=== PATIENT | male | born 1975 | race Caucasian/White ===

== ENCOUNTER 2024-07-26 05:23 | Emergency (ER) | payer BC ==
[~2024-07-26] VITALS: Ht 170.2 cm; Wt 120.7 kg
[2024-07-26 05:42] VITALS: BP_SYST 143; PULSE 67; RESP 18; TEMP 98.1; O2SAT 99
[2024-07-26] MEDS ORDERED: IBUP-1971 PO (07:37)
[2024-07-26] MEDS ORDERED: OMEP40CA20 PO (07:37)
[2024-07-26 07:42] LABS: BASOPHILS % (AUTO) 0.3 % (0.0-2.0); EOSINOPHILS % (AUTO) 0.2 % (0.0-4.0); HEMATOCRIT 42.7 % (36-54); HEMOGLOBIN 14.1 g/dL (14.0-18.0); LYMPHOCYTES # (AUTO) 1.6 K/uL (1.0-5.5); LYMPHOCYTES % (AUTO) 16.6 % (20.5-51.5); MEAN CORPUSCULAR HEMOGLOBIN 27 pg (27-31); MEAN CORPUSCULAR HGB CONC 33 % (32-36); MEAN CORPUSCULAR VOLUME 82 fL (79.0-98.0); MONOCYTES # (AUTO) 0.5 K/uL (0.0-1.0); MONOCYTES % (AUTO) 5.1 % (1.7-9.3); NEUTROPHILS # (AUTO) 7.4 K/uL (1.8-7.7); NEUTROPHILS % (AUTO) 77.8 % (40.0-70.0); PLATELET COUNT (AUTO) 276 K/uL (130-430); RED BLOOD CELL COUNT(AUTO) 5.24 MIL/uL (4.2-6.2); RED CELL DISTRIBUTION WIDTH 13.5 % (9.0-15.0); WHITE BLOOD COUNT (AUTO) 9.5 K/uL (4.8-10.8)
[2024-07-26] MEDS: ONDANSETRON 4 MG ODT TAB PO ONE (07:53)
[2024-07-26] MEDS: NACL 0.9% 1,000 ML IV ONE (07:53)
[2024-07-26] MEDS: ONDANSETRON HCL 4 MG/2 ML VIAL IVP ONE (07:53)
[2024-07-26 07:54] LABS: ALBUMIN 4.1 g/dL (3.4-4.8); BILIRUBIN,DIRECT 0.1 mg/dL (0.0-0.3); CALCIUM 8.8 mg/dL (8.4-11.0); CREATININE 0.86 mg/dL (0.55-1.30); POTASSIUM 4.1 mmol/L (3.5-5.1); TOTAL BILIRUBIN 0.4 mg/dL (0.0-1.0); TOTAL PROTEIN, SERUM 8.2 g/dL (6.4-8.3)
[2024-07-26] MEDS: MORPHINE 4 MG INJ. 4 MG/ML VIAL IVP ONE (07:54)
[2024-07-26] MEDS: KETOROLAC TROMETHAMINE 60 MG/2 ML VIAL IM ONE (07:54)
[2024-07-26 08:38] VITALS: BP_SYST 143; PULSE 67; RESP 18; TEMP 98.1; O2SAT 99
== END 2024-07-26 08:34 | disposition home or self-care (01) ==
LOC: SED 05:23
DX: R10.13 Epigastric pain (principal); R11.2 Nausea with vomiting, unspecified; K76.0 Fatty (change of) liver, not elsewhere classified; Z79.899 Other long term (current) drug therapy
CPT/HCPCS: 99285; 96374; 76700; 96361; 96375; 80076; 80048; 83690; 85025; 36415; 81002; 96372; Q0162; J1885; J2405; J2270; J7030

== ENCOUNTER 2024-08-12 13:16 | Emergency (ER) | payer BC ==
[~2024-08-12] VITALS: Ht 170.2 cm; Wt 113.4 kg
[~2024-08-12 13:16] MED LIST: IBUP-1971 PO; OMEP40CA20 PO
[2024-08-12 13:29] VITALS: BP_SYST 128; PULSE 84; RESP 16; TEMP 97.9; O2SAT 97
[2024-08-12] MEDS: KETOROLAC TROMETHAMINE 30 MG VIAL IM ONE (14:18)
[2024-08-12] MEDS: OXYCODONE/ACETAMINOPHEN 5-325 TABLET PO ONE (14:19)
[2024-08-12] MEDS: CYCLOBENZAPRINE HCL 10 MG TABLET (FLEXERIL) PO ONE (14:19)
[2024-08-12] MEDS: ACETAMINOPHEN 500 MG TABLET PO ONE (14:19)
[2024-08-12] MEDS: LIDOCAINE PATCH 5% 1 EA TP ONE (14:20)
[2024-08-12] MEDS ORDERED: CYCL10TA24 PO (15:00)
[2024-08-12] MEDS ORDERED: LIDO1ADH22 TP (15:00)
[2024-08-12 15:23] VITALS: BP_SYST 122; PULSE 76; RESP 18; TEMP 97.9; O2SAT 97
== END 2024-08-12 15:23 | disposition home or self-care (01) ==
LOC: SED 13:16
DX: M54.30 Sciatica, unspecified side (principal); Z79.899 Other long term (current) drug therapy
CPT/HCPCS: 99284; 96372; J1885